=== PATIENT | female | born 1985 | race Caucasian/White ===

== ENCOUNTER 2017-11-13 21:55 | Emergency (ER) | payer OTHER ==
[2017-11-13 21:56] VITALS: BMI 36.5
[2017-11-13 22:01] VITALS: BP 105/68; PULSE 80; TEMP 98.3; O2SAT 98
--- NOTE | 2017-11-13 22:24 | C.PDOC ---
History Of Present Illness Pt c/o left sided throat pain x 1 day. Denies cough, fever, sick contacts. No meds taken. Time Seen by Provider: 11/13/17 22:07 Chief Complaint (Nursing): ENT Problem History Per: Patient History/Exam Limitations: None Onset/Duration Of Symptoms: Days (1) Quality (Ear): denies: Discharge Symptoms Have Been: Continuous Past Medical History Reviewed: Historical Data, Nursing Documentation, Vital Signs Vital Signs: Last Vital Signs Temp 98.3 F 11/13/17 21:57 Pulse 80 11/13/17 21:57 Resp 20 11/13/17 22:44 BP 105/68 11/13/17 21:57 Pulse Ox 98 11/13/17 22:24 - Medical History PMH: No Chronic Diseases - [facility] Procedures ASPIRAT CURET-POST DELIV (10/30/14) DELIVERY OF PRODUCTS OF CONCEPTION, EXTERNAL APPROACH (04/19/16) Family History: States: Unknown Family Hx - Social History Hx Tobacco Use: No Hx Alcohol Use: Yes Hx Substance Use: No - Immunization History Hx Tetanus Toxoid Vaccination: Yes Hx Influenza Vaccination: Yes Hx Pneumococcal Vaccination: No Review Of Systems Constitutional: Negative for: Fever, Chills Eyes: Negative for: Pain ENT: Positive for: Throat Pain. Negative for: Ear Pain, Ear Discharge, Nose Pain, Nose Discharge, Nose Congestion Physical Exam - Physical Exam Appears: Well, Non-toxic, No Acute Distress Skin: Normal Color, Warm, Dry Head: Atraumatic, Normacephalic Eye(s): bilateral: Normal Inspection Ear(s): Bilateral: Normal Nose: Normal Oral Mucosa: Moist Tongue: Normal Appearing, Lesions Teeth: Normal Dentition Gingiva: Normal Appearing Throat: Erythema (minimal left sided. ), No Exudate, No Drooling, No Mass Neck: Normal, Normal ROM Lymphatic: No Adenopathy Chest: Symmetrical Cardiovascular: Rhythm Regular Respiratory: Normal Breath Sounds, No Rales, No Rhonchi, No Wheezing Gastrointestinal/Abdominal: Normal Exam Back: Normal Inspection Extremity: Normal ROM ED Course And Treatment O2 Sat by Pulse Oximetry: 98 Pulse Ox Interpretation: Normal Reassessment Condition: Improved (ibuprofen given for pain) Disposition Counseled Patient/Family Regarding: Diagnosis, Need For Followup - Disposition Referrals: Bg Bernardo MD [Medical Doctor] - Disposition: HOME/ ROUTINE Disposition Time: 22:19 Condition: STABLE Additional Instructions: FOLLOW UP WITH PMD ON WEDNESDAY FOR RE-EVALUATION. TAKE IBUPROFEN 400 MG EVERY 6 HRS NEEDED FOR PAIN. IF SYMPTOMS GET WORSE OR ANY NEW CONCERNING SYMPTOMS DEVELOP RETURN TO ED. Instructions: Sore Throat, Adult (DC) Forms: [employer] (Mozambican) - Clinical Impression Clinical Impression: Sore throat (viral)
[2017-11-13 22:45] VITALS: RESP 20
== END 2017-11-13 22:44 | disposition home or self-care (01) ==
LOC: C.ER 21:55
DX: J02.9 Acute pharyngitis, unspecified (principal)

== ENCOUNTER 2017-12-14 13:40 | Emergency (ER) | payer OTHER ==
[2017-12-14 13:40] VITALS: BMI 36.5
[2017-12-14 13:49] VITALS: BP 110/70; PULSE 82; RESP 16; TEMP 98.2; O2SAT 100
--- NOTE | 2017-12-14 14:14 | C.PDOC ---
History Of Present Illness 32 year old female presents to the ED for evaluation of sore throat, cough, congestion, and generalized body aches which began two days ago. Patient also reports subjective fever. She denies sick contacts and has no other complaints at this time. Time Seen by Provider: 12/14/17 13:50 Chief Complaint (Nursing): Flu-like Symptoms History Per: Patient History/Exam Limitations: no limitations Onset/Duration Of Symptoms: Days (2) Current Symptoms Are (Timing): Still Present Location Of Pain: Throat Sick Contacts (Context): None Associated Symptoms: Fever, Sore Throat, Cough Ear Symptoms: Bilateral: None Additional History Per: Patient Past Medical History Reviewed: Historical Data, Nursing Documentation, Vital Signs Vital Signs: Last Vital Signs Temp 98.2 F 12/14/17 13:47 Pulse 82 12/14/17 13:47 Resp 16 12/14/17 13:47 BP 110/70 12/14/17 13:47 Pulse Ox 100 12/14/17 18:18 - Medical History PMH: No Chronic Diseases Surgical History: No Surg Hx - [facility] Procedures ASPIRAT CURET-POST DELIV (10/30/14) DELIVERY OF PRODUCTS OF CONCEPTION, EXTERNAL APPROACH (04/19/16) Family History: States: Unknown Family Hx - Social History Hx Tobacco Use: No Hx Alcohol Use: Yes Hx Substance Use: No - Immunization History Hx Tetanus Toxoid Vaccination: Yes Hx Influenza Vaccination: Yes Hx Pneumococcal Vaccination: No Review Of Systems Constitutional: Positive for: Fever ENT: Positive for: Nose Congestion, Throat Pain Respiratory: Positive for: Cough Musculoskeletal: Positive for: Other (generalized body aches ) Physical Exam - Physical Exam Appears: Non-toxic, No Acute Distress, Other (comfortable, texting on her phone ) Skin: Normal Color, Warm, Dry Head: Atraumatic, Normacephalic Eye(s): bilateral: Normal Inspection Ear(s): Bilateral: Normal Nose: Normal, No Discharge Oral Mucosa: Moist Throat: Erythema, No Exudate Neck: Supple Chest: Symmetrical, No Deformity, No Tenderness Cardiovascular: Rhythm Regular Respiratory: Normal Breath Sounds, No Rales, No Rhonchi, No Wheezing Extremity: Normal ROM Neurological/Psych: Oriented x3, Normal Speech, Normal Cognition ED Course And Treatment O2 Sat by Pulse Oximetry: 100 (on RA) Pulse Ox Interpretation: Normal Medical Decision Making Medical Decision Making: Impression: 32 year old female with sore throat, cough, congestion, body aches , subjective fever Progress: Rapid Strep Test and CXR ordered and reviewed. Tylenol PO administered. strep neg. cxr neg. pt well appearing no hot potato voice no unliateral swelling suspect viral syndrome. Disposition - Disposition Disposition: HOME/ ROUTINE Disposition Time: 06:00 Condition: STABLE Additional Instructions: please follow up with your doctor. return to er with worsening symptoms or concerns. Instructions: Viral Syndrome (DC) Forms: [employer] (Iraqi) - Clinical Impression Clinical Impression: Viral syndrome - Scribe Statement The provider has reviewed the documentation as recorded by the Scribe (Sophia Arriaga) Provider Attestation: All medical record entries made by the Scribe were at my direction and personally dictated by me. I have reviewed the chart and agree that the record accurately reflects my personal performance of the history, physical exam, medical decision making, and the department course for this patient. I have also personally directed, reviewed, and agree with the discharge instructions and disposition.
--- NOTE | 2017-12-14 14:18 | RAD ---
HISTORY: cough COMPARISON: Chest radiograph dated 05/25/2014. TECHNIQUE: Chest PA and lateral FINDINGS: LUNGS: No active pulmonary disease. PLEURA: No significant pleural effusion identified. No pneumothorax apparent. CARDIOVASCULAR: Normal. OSSEOUS STRUCTURES: No significant abnormalities. VISUALIZED UPPER ABDOMEN: Normal. OTHER FINDINGS: None. IMPRESSION: No active disease.
== END 2017-12-14 15:12 | disposition home or self-care (01) ==
LOC: C.ER 13:40
DX: B34.9 Viral infection, unspecified (principal)

== ENCOUNTER 2017-12-19 16:58 | Emergency (ER) | payer OTHER ==
[2017-12-19 17:17] VITALS: BMI 31.8
[2017-12-19 17:27] VITALS: BP 135/79; PULSE 85; RESP 18; TEMP 98.9; O2SAT 99
[2017-12-19] MEDS ORDERED: Albuterol 0.083% Inhal Sol (2.5 mg/3 mL) UD INH STA (17:37)
[2017-12-19] MEDS ORDERED: Albuterol 0.083% Inhal Sol (2.5 mg/3 mL) UD ONE (17:50)
--- NOTE | 2017-12-19 17:52 | C.PDOC ---
History Of Present Illness 32 year old female presents to the emergency department with complaints of sore throat, cough, congestion, and generalized body aches. Patient reports that she has been evaluated in the ED two times in the last month, and was diagnosed with a viral syndrome in her last visit with no medications given to her at that time. Currently she has the same complaints which worsen at night, with no documented fever. She denies headache, nausea, vomiting, abdominal pain, and shortness of breath. Time Seen by Provider: 12/19/17 17:02 Chief Complaint (Nursing): Cough, Cold, Congestion History Per: Patient History/Exam Limitations: no limitations Onset/Duration Of Symptoms: Other (two weeks) Current Symptoms Are (Timing): Still Present Associated Symptoms: Sore Throat, Cough, Myalgias, Nasal Congestion. denies: Fever, Vomiting, Other (shortness of breath, abdominal pain, abdominal pain) Past Medical History Reviewed: Historical Data, Nursing Documentation, Vital Signs Vital Signs: Last Vital Signs Temp 98.9 F 12/19/17 17:17 Pulse 85 12/19/17 17:17 Resp 18 12/19/17 17:17 BP 135/79 12/19/17 17:17 Pulse Ox 99 12/19/17 17:57 - Medical History PMH: No Chronic Diseases Surgical History: No Surg Hx - [facility] Procedures ASPIRAT CURET-POST DELIV (10/30/14) DELIVERY OF PRODUCTS OF CONCEPTION, EXTERNAL APPROACH (04/19/16) Family History: States: No Known Family Hx - Social History Hx Tobacco Use: No Hx Alcohol Use: No Hx Substance Use: No - Immunization History Hx Tetanus Toxoid Vaccination: Yes Hx Influenza Vaccination: Yes Hx Pneumococcal Vaccination: No Review Of Systems Except As Marked, All Systems Reviewed And Found Negative. Constitutional: Positive for: Malaise. Negative for: Fever ENT: Positive for: Nose Congestion, Throat Pain Respiratory: Positive for: Cough. Negative for: Shortness of Breath Gastrointestinal: Negative for: Nausea, Vomiting, Abdominal Pain Neurological: Negative for: Headache Physical Exam - Physical Exam Appears: Non-toxic, No Acute Distress Skin: Warm, Dry Head: Atraumatic, Normacephalic Eye(s): bilateral: Normal Inspection Ear(s): Bilateral: Normal Nose: Normal Oral Mucosa: Moist Throat: Normal, No Erythema, No Exudate Neck: Normal, Supple Cardiovascular: Rhythm Regular, No Murmur Respiratory: Normal Breath Sounds, No Rales, No Rhonchi, No Wheezing Gastrointestinal/Abdominal: Normal Exam, Soft, No Tenderness, No Guarding, No Rebound Neurological/Psych: Oriented x3, Normal Speech, Normal Cognition ED Course And Treatment O2 Sat by Pulse Oximetry: 99 (RA) Pulse Ox Interpretation: Normal Medical Decision Making Medical Decision Making: Plan: Albuterol 2.5mg INH Prednisone 60mg PO Nebulizer Treatment Presentation of persistent cough may be more consistent with allergies. Patient treated with Albuterol and Prednisone. Disposition Counseled Patient/Family Regarding: Need For Followup, Rx Given - Disposition Referrals: Bg Bernardo MD [Medical Doctor] - Disposition: HOME/ ROUTINE Disposition Time: 18:08 Condition: STABLE Prescriptions: Albuterol HFA [Ventolin HFA 90 mcg/actuation (8 g)] 1 puff IH QID PRN #1 puff PRN Reason: Cough Loratadine [Claritin] 10 mg PO DAILY #10 tab Prednisone [Deltasone] 60 mg PO DAILY #12 tablet Instructions: Cough, Adult (DC), Seasonal Allergies (DC) Forms: [facility] (Lao), General Discharge Instructions, Work Excuse - POA Present On Arrival: None - Clinical Impression Clinical Impression: Seasonal allergies - Scribe Statement The provider has reviewed the documentation as recorded by the Scribe (Tyler Gaxiola) Provider Attestation: All medical record entries made by the Scribe were at my direction and personally dictated by me. I have reviewed the chart and agree that the record accurately reflects my personal performance of the history, physical exam, medical decision making, and the department course for this patient. I have also personally directed, reviewed, and agree with the discharge instructions and disposition.
== END 2017-12-19 18:33 | disposition home or self-care (01) ==
LOC: C.ER 16:58
DX: J30.2 Other seasonal allergic rhinitis (principal)